=== PATIENT | female | born 1995 | race African-American/Black ===

== ENCOUNTER 2022-06-01 10:01 | Emergency (ER) | payer OTHER | END 2022-06-01 13:50 | disposition home or self-care (01) | LOC: CSHERS 10:01 | DX: Z34.82 Encounter for supervision of other normal pregnancy, second trimester (principal); Z3A.17 17 weeks gestation of pregnancy | CPT/HCPCS: 76815 ==

== ENCOUNTER 2022-07-17 14:22 | Outpatient (CLI) | payer OTHER | END 2022-07-17 14:23 | disposition home or self-care (01) | LOC: CSHULT 14:22 | PROVIDERS: ATTEND Family Medicine | DX: O09.892 Supervision of other high risk pregnancies, second trimester (principal); Z3A.24 24 weeks gestation of pregnancy | CPT/HCPCS: 76805 ==